=== PATIENT | female | born 1960 | race Caucasian/White ===

== ENCOUNTER 2019-10-19 08:57 | Day surgery (SDC) | payer MEDICARE ==
[2019-10-19] MEDS ORDERED: Lactated Ringers 1,000 ML IV SCH (10:00)
[2019-10-19] MEDS ORDERED: Ketamine HCl 50 MG/ML ONE (11:17)
[2019-10-19] MEDS ORDERED: DIPRIVAN 200 MG/20 ML IV ONE ×2 (11:17→11:34)
[2019-10-19] MEDS ORDERED: Ephedrine Sulfate 50 MG/ML ONE (11:32)
[2019-10-19 12:36] VITALS: BP 100/68; PULSE 66; O2SAT 97
--- NOTE | 2019-10-19 13:06 | OP ---
SURGERY DATE/TIME: 10/19/2019 1120 PREOPERATIVE DIAGNOSIS: Colostomy in place. POSTOPERATIVE DIAGNOSES: 1) Colostomy in place. 2) Pancolonic diverticulosis. PROCEDURE: Colonoscopy through anus and stoma. SURGEON: Saúl Thomas M.D. ANESTHESIA: IV anesthesia. COMPLICATIONS: None. SPECIMEN: None. PATIENT CONDITION: Stable. HISTORY: The patient is a 59 year-old female who last year underwent Pino procedure for perforated diverticulitis. She has been doing well since that time. She now desires reversal. Risk of perforation, infection, bleeding were discussed and she elected to proceed. FINDINGS: Pancolonic diverticulosis. Rectal stump 18 cm. DESCRIPTION OF PROCEDURE: The patient was brought to endoscopy suite. She is positioned. Time out was performed. IV anesthesia was induced. External anal exam was normal. Digital rectal exam was normal. Scope is inserted. There was some small mucous balls. The scope is easily advanced about 18 cm which is probably at the end. There was some mucous so it was hard to definitively see the end. The patient was then placed flat and the scope was introduced through stoma. This was easily advanced to the cecum. Appendiceal orifice was identified. Ileocecal valve identified. Prep was adequate though very small lesions could be missed. She had pancolonic diverticulosis extending all the way to the cecum. There is no evidence of diverticulitis. The exam was otherwise normal. The patient tolerated the procedure well.
== END 2019-10-19 12:35 | disposition home or self-care (01) ==
LOC: SDC 08:57
PROVIDERS: ATTEND Surgery
DX: K57.30 Diverticulosis of large intestine without perforation or abscess without bleeding (principal); I10 Essential (primary) hypertension; M19.90 Unspecified osteoarthritis, unspecified site; Z90.49 Acquired absence of other specified parts of digestive tract; Z93.3 Colostomy status
CPT/HCPCS: J2704

== ENCOUNTER 2019-12-02 07:07 | Inpatient (IN) | payer MEDICARE ==
[~2019-12-02 07:07] MED LIST: Lactated Ringers 1,000 ML IV SCH; MEFOXIN 2 GM PREMIX** 2 GM/50 ML ML IV SCH
[2019-12-02] MEDS ORDERED: Lactated Ringers 1,000 ML IV ONE ×2 (07:16→14:14)
[2019-12-02] MEDS ORDERED: MEFOXIN 2 GM PREMIX** 2 GM/50 ML ML IV ONE (07:16)
[2019-12-02] MEDS ORDERED: ENTEREG 12 MG PO SCH (07:30)
[2019-12-02 08:07] LABS: Hematocrit 46.2 % (35-47); Hemoglobin 15.7 gm/dl (12.0-16.0); Mean Cell Volume 90.2 fl (78-100); Mean Corpuscular Hemoglobin 30.7 pg (26-32); Mean Platelet Volume 9.3 fl (7.5-11.0); Platelet Count 209 K/mm3 (150-450); Red Blood Count 5.12 M/mm3 (4.1-5.4); Red Cell Distribution Width 12.8 % (11.5-14.0); White Blood Count 6.7 K/mm3 (4.0-10.5)
[2019-12-02 08:23] LABS: ALBUMIN 4.8 g/dL (3.5-5.0); ANION GAP 14.6 MEQ/L (5-15); BILIRUBIN,TOTAL 1.3 mg/dL (0.2-1.3); Calcium 9.6 mg/dL (8.4-10.2); Creatinine 1 1.24 mg/dL (0.52-1.04); EST GLOMERULAR FILTRATION RATE 47.2 ML/MIN; Total Protein 8.3 g/dL (6.3-8.2)
[2019-12-02] MEDS ORDERED: Lactated Ringers 1,000 ML IV SCH (09:00)
[2019-12-02] MEDS ORDERED: SUBLIMAZE 250 MCG/5 ML ONE (09:32)
[2019-12-02] MEDS ORDERED: DIPRIVAN 200 MG/20 ML IV ONE (09:32)
[2019-12-02] MEDS ORDERED: Zemuron 100 MG/10 ML ONE ×3 (09:32→11:54)
[2019-12-02] MEDS ORDERED: Versed 2 MG/2 ML Injection ONE (09:32)
[2019-12-02] MEDS ORDERED: Xylocaine-Mpf 2% 5 Ml Vial ONE (09:42)
[2019-12-02 10:00] LABS: ABO TYPING AB; Antibody Screen NEGATIVE (NEGATIVE); RH TYPING POSITIVE
[2019-12-02] MEDS ORDERED: Lactated Ringers 2,000 ML IV ONE (10:06)
[2019-12-02] MEDS ORDERED: SUBLIMAZE 100 MCG/2 ML ONE ×2 (10:49→13:54)
[2019-12-02 10:57] LABS: A-aADO2 206; ABG HEMOGLOBIN 14.4; ARTERIAL BLD GAS O2 SATURATION 99.2 % (95-100); ARTERIAL BLOOD GAS BASE EXCESS 5.1 (-2.0-2.0); ARTERIAL BLOOD GAS FIO2 50 %; ARTERIAL BLOOD GAS PCO2 34 mmHg (35-45); ARTERIAL BLOOD GAS PO2 108 mmHg (75-100); ARTERIAL BLOOD GAS pH 7.52 (7.35-7.45); CARBOXYHEMOGLOBIN 1.2 % THgb (0.0-6.9); HCO3- 27.8 (22-28); HGB O2 SAT 96.6 g/dF (94-100); Methhemoglobin 1.4 % (1.4-1.5); paO2 pAO1 0.34
[2019-12-02 10:58] LABS: ABG POTASSIUM 2.9 (3.5-5.1); ABG SITE ARTLINE
[2019-12-02] MEDS ORDERED: MORPHINE SULFATE 10 MG/ML ONE ×2 (11:30→13:54)
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
[2019-12-02] MEDS ORDERED: Marcaine 0.5%/Epinephrine 10 ML ONE (12:22)
[2019-12-02] MEDS ORDERED: MARCAINE 0.5%-EPI 1:200,000 VL IJ ONE (12:22)
[2019-12-02] MEDS ORDERED: Zofran 4 MG/2 ML VIAL ONE (12:46)
[2019-12-02] MEDS ORDERED: BRIDION 200MG/2ML IV ONE (12:46)
[2019-12-02 13:47] LABS: A-aADO2 225; ABG POTASSIUM 3.3 (3.5-5.1); ARTERIAL BLD GAS O2 SATURATION 91.8 % (95-100); ARTERIAL BLOOD GAS BASE EXCESS -0.7 (-2.0-2.0); ARTERIAL BLOOD GAS FIO2 50 %; ARTERIAL BLOOD GAS PCO2 54 mmHg (35-45); ARTERIAL BLOOD GAS PO2 64 mmHg (75-100); CARBOXYHEMOGLOBIN 1.8 % THgb (0.0-6.9); HCO3- 26.6 (22-28); HGB O2 SAT 89.2 g/dF (94-100); Methhemoglobin 1.1 % (1.4-1.5); paO2 pAO1 0.22
[2019-12-02 13:48] LABS: ABG SITE rr; ALLEN TEST OK? y
[2019-12-02 14:27] LABS: A-aADO2 161; ABG HEMOGLOBIN 15.2; ABG POTASSIUM 3.6 (3.5-5.1); ARTERIAL BLOOD GAS BASE EXCESS -1.7 (-2.0-2.0); ARTERIAL BLOOD GAS FIO2 50 %; ARTERIAL BLOOD GAS PCO2 61 mmHg (35-45); ARTERIAL BLOOD GAS PO2 119 mmHg (75-100); ARTERIAL BLOOD GAS VENT MODE BiPAP; ARTERIAL BLOOD GAS pH 7.25 (7.35-7.45); CARBOXYHEMOGLOBIN 1.4 % THgb (0.0-6.9); HCO3- 26.8 (22-28); HGB O2 SAT 96.7 g/dF (94-100); Methhemoglobin 0.9 % (1.4-1.5); paO2 pAO1 0.43
[2019-12-02 14:28] LABS: ABG SITE ARTLINE
[2019-12-02 14:45] LABS: Appearance SLIGHTLY CLOUDY (CLEAR); Bilirubin NEGATIVE (NEGATIVE); Blood SMALL Ery/ul (0-5); Epithelial Cells RARE /HPF (FEW); Glucose NEGATIVE (NEGATIVE); Ketones SMALL (NEGATIVE); Leukocyte Esterase NEGATIVE (NEGATIVE); Mucus SLIGHT /HPF (NEGATIVE); Nitrite NEGATIVE (NEGATIVE); Protein,Urine Dip NEGATIVE (Negative); RBC 0-2 /HPF (0-2); Specific Gravity 1.016 (1.005-1.025); Urobilinogen NEGATIVE mg/dL (0-1); WBC 0-2 /HPF (0-5)
[2019-12-02 14:56] LABS: Bacteria NONE SEEN /HPF (NEGATIVE)
[2019-12-02 15:21] LABS: A-aADO2 137; ABG POTASSIUM 3.8 (3.5-5.1); ABG SITE ARTLINE; ARTERIAL BLOOD GAS BASE EXCESS -1.1 (-2.0-2.0); ARTERIAL BLOOD GAS FIO2 50 %; ARTERIAL BLOOD GAS PCO2 53 mmHg (35-45); ARTERIAL BLOOD GAS PO2 153 mmHg (75-100); ARTERIAL BLOOD GAS VENT MODE BiPAP; CARBOXYHEMOGLOBIN 1.5 % THgb (0.0-6.9); HCO3- 26.1 (22-28); HGB O2 SAT 97.3 g/dF (94-100); Methhemoglobin 1.1 % (1.4-1.5); paO2 pAO1 0.53
--- NOTE | 2019-12-02 15:26 | OP ---
SURGERY DATE/TIME: 12/02/2019 0936 PREOPERATIVE DIAGNOSIS: Undesired colostomy. POSTOPERATIVE DIAGNOSES: 1) Undesired colostomy. 2) Intra-abdominal adhesions. PROCEDURES: 1) Pino reversal. 2) Appendectomy. 3) Enterolysis less than 30 minutes. 4) Completion sigmoidoscopy. SURGEON: Saúl Thomas M.D. ELECTRIC METER TECHNICIAN: Ludwin Thomas M.D. ANESTHESIA: General. ESTIMATED BLOOD LOSS: 200. PATIENT CONDITION: Stable. COMPLICATIONS: None. SPECIMENS: 1) Appendix. 2) Portion of sigmoid colon. HISTORY: The patient is a 59 year old female who underwent Pino procedure for perforated diverticulitis. Since that time she has done well. Colonoscopy showed pancolonic diverticulosis but no other concerns. Risk of infection, bleeding, anastomotic leak, , hernia were discussed with the patient and she elected to proceed. FINDINGS: There was adequate descending sigmoid colon length. The anastomosis was at 15 cm. The rectal stump did require resection as it was slightly long and scarred. An end-to-side 25 mm anastomosis was made. Small bowel enterotomy was made due to dense adhesion to the rectal staple line this was primarily repaired. DESCRIPTION OF PROCEDURE: The patient was brought to operating room. General anesthesia was induced. She was placed in lithotomy position. SCD's were applied on. She was routinely prepped and draped. Time out was performed. She received preoperative antibiotic. Midline laparotomy was made and carried down through the fascia. The abdomen was entered. There were omental adhesion to the midline and the ostomy site. These were taken down. A loop of small bowel was adhesed down to the rectal stump and was intimately involved. It was expected to make an enterotomy. A small enterotomy less than 1 cm was made at the corner of the adhesion to the staple line. This was primarily repaired with 3-0 Vicryl suture. It was then tested and was satisfactory with no stenosis. The abdomen was surveyed. The liver was normal. The NG was in the stomach. The rest of the colon was normal. Descending sigmoid colon evaluated. She did have a savable redundant descending colon with sigmoid. She did have some mild diverticular disease but the colon was completely soft and healthy. The ostomy was taken down. Elliptical incision was made taking the ostomy down. The fascia was closed with 0 PDS suture. The line was then tested. There was adequate length. No splenic flexure mobilization was necessary. The descending and sigmoid colon was small caliber. End-to-side anastomosis was placed. Enterotomy was made and the sizers were placed. The 25 sizer was appropriate. The 25 anvil was placed. Blue load JAMES was used to divide the sigmoid. The specimen was sent as "portion of the sigmoid colon". The rectal stump was addressed. The end was clearly visible at the old staple line this was at the area where the tinea were splaying. The dilator was placed through the rectum. However there was kink and some scarring of the colon and mesentery which required the mesentery and the colon to be freed up additionally. Ultimately a few centimeters of remaining of sigmoid was needed to be resected. The contour green load was used to divide the rectum. The mesentery was taken with the ENSEAL. The specimen was sent with the prior specimen. The sizer was passed up and was satisfactory. 29 was also passed up satisfactorily. The 25 contour stapler was placed. The point was brought out. The EEA anastomosis was created this was satisfactory with absolutely no tension and there was good hemostasis intra-abdominally. The colonoscope was advanced. The anastomosis was healthy. There was some oozing from the posterior anastomosis though. There were no bubbles that were detected. A clip was applied to posterior anastomosis. There was good hemostasis. The colon was desufflated. Scope removed. The anastomosis was at 15 cm. The abdomen was surveyed. There was good hemostasis. The pelvis and left lower quadrant was irrigated and suctioned. A 10 Spanish drain was placed in the pelvis. The ostomy closure site was satisfactory. The fascia was closed with looped 0 PDS running suture. The wounds were irrigated. A 0.25 [place] was placed in the ostomy incision and reapproximated with arin. The midline wound was reapproximated with arin with 0.25 inch packing josh interspersed. Sterile dressing was applied. All counts were correct. The patient tolerated the procedure well. Plan for tap block and extubation. ADDENDUM: During survey of the abdomen, the appendix had a small, 3 mm nodule on it that looked slightly abnormal. Appendectomy was performed. Mesoappendix was taken with ENSEAL. The base of the appendix was taken with white load JAMES. Specimen was sent to pathology.
[2019-12-02 16:08] LABS: ALBUMIN 3.9 g/dL (3.5-5.0); ALKALINE PHOSPHATASE 68 U/L (38-126); ANION GAP 10.8 MEQ/L (5-15); BLOOD UREA NITROGEN 20 mg/dL (7-17); CHLORIDE 103 mmol/L (98-107); Calcium 8.4 mg/dL (8.4-10.2); Carbon Dioxide 24 mmol/L (22-30); Creatinine 1 0.98 mg/dL (0.52-1.04); EST GLOMERULAR FILTRATION RATE > 60.0 ML/MIN; Glucose 141 mg/dL (74-106); MAGNESIUM 1.9 mg/dL (1.6-2.3); Potassium 3.7 mmol/L (3.5-5.1); SGOT/AST 31 U/L (14-36); SGPT/ALT 15 U/L (0-35); SODIUM 134 mmol/L (137-145)
[2019-12-02 16:16] LABS: Hematocrit 43.1 % (35-47); Hemoglobin 14.6 gm/dl (12.0-16.0); Mean Cell Volume 90.4 fl (78-100); Mean Corpuscular Hemoglobin 30.6 pg (26-32); Mean Corpuscular Hgb Concent. 33.9 g/dl (32-36); Mean Platelet Volume 9.5 fl (7.5-11.0); Platelet Count 239 K/mm3 (150-450); Red Blood Count 4.77 M/mm3 (4.1-5.4); Red Cell Distribution Width 12.8 % (11.5-14.0)
[2019-12-02 17:09] LABS: A-aADO2 113; ABG HEMOGLOBIN 13.4; ABG POTASSIUM 3.6 (3.5-5.1); ABG SITE ARTLINE; ARTERIAL BLD GAS O2 SATURATION 99.7 % (95-100); ARTERIAL BLOOD GAS FIO2 50 %; ARTERIAL BLOOD GAS PCO2 49 mmHg (35-45); ARTERIAL BLOOD GAS PO2 182 mmHg (75-100); ARTERIAL BLOOD GAS VENT MODE BiPAP; ARTERIAL BLOOD GAS pH 7.34 (7.35-7.45); CARBOXYHEMOGLOBIN 1.3 % THgb (0.0-6.9); HCO3- 26.4 (22-28); HGB O2 SAT 97.2 g/dF (94-100); Methhemoglobin 1.2 % (1.4-1.5); paO2 pAO1 0.62
[2019-12-02] MEDS ORDERED: Dextrose 5%-Lr IV Solution 1000 ML 1,000 ML IV ONE (19:26)
[2019-12-02] MEDS: MORPHINE SULFATE 2 MG INJ IV PRN (19:33)
[2019-12-02] MEDS: Dextrose 5%-Lr IV Solution 1000 ML 1,000 ML IV SCH (19:33)
[2019-12-02] MEDS: MORPHINE SULFATE 4 MG INJ IV PRN (22:33)
[2019-12-03] MEDS: TYLENOL 325 MG PO PRN (00:22)
[2019-12-03] MEDS ORDERED: Dextrose 5%-Lr IV Solution 1000 ML 1,000 ML IV ONE (03:20)
[2019-12-03] MEDS: Dextrose 5%-Lr IV Solution 1000 ML 1,000 ML IV SCH (03:57)
[2019-12-03 06:02] LABS: A-aADO2 16; ABG HEMOGLOBIN 11.7; ABG POTASSIUM 3.2 (3.5-5.1); ABG SITE RIGHT BRACHIAL; ARTERIAL BLD GAS O2 SATURATION 99.5 % (95-100); ARTERIAL BLOOD GAS BASE EXCESS 5.4 (-2.0-2.0); ARTERIAL BLOOD GAS FIO2 28 %; ARTERIAL BLOOD GAS PCO2 38 mmHg (35-45); ARTERIAL BLOOD GAS PO2 136 mmHg (75-100); ARTERIAL BLOOD GAS pH 7.49 (7.35-7.45); CARBOXYHEMOGLOBIN 4.9 % THgb (0.0-6.9); HGB O2 SAT 93.3 g/dF (94-100); Methhemoglobin 1.4 % (1.4-1.5); paO2 pAO1 0.89
[2019-12-03 06:04] LABS: Hematocrit 33.4 % (35-47); Hemoglobin 11.2 gm/dl (12.0-16.0); Mean Cell Volume 93.3 fl (78-100); Mean Corpuscular Hemoglobin 31.3 pg (26-32); Mean Corpuscular Hgb Concent. 33.5 g/dl (32-36); Mean Platelet Volume 9.3 fl (7.5-11.0); Platelet Count 161 K/mm3 (150-450); Red Blood Count 3.58 M/mm3 (4.1-5.4); Red Cell Distribution Width 12.9 % (11.5-14.0); White Blood Count 6.2 K/mm3 (4.0-10.5)
[2019-12-03 06:16] LABS: ANION GAP 6.9 MEQ/L (5-15); BLOOD UREA NITROGEN 14 mg/dL (7-17); CHLORIDE 105 mmol/L (98-107); Calcium 7.7 mg/dL (8.4-10.2); Carbon Dioxide 25 mmol/L (22-30); Creatinine 1 0.99 mg/dL (0.52-1.04); EST GLOMERULAR FILTRATION RATE > 60.0 ML/MIN; Glucose 122 mg/dL (74-106); SODIUM 134 mmol/L (137-145)
[2019-12-03] MEDS: POTASSIUM CHLORIDE 20 mEq IN WATER 100ML 20 MEQ/100 ML BAG IV SCH ×2 (07:00→08:31)
[2019-12-03] MEDS: D5w/0.45NS W/ 40MEQ KCl 1000 Ml 1,000 ML IV SCH ×3 (07:00→22:51)
[2019-12-03] MEDS ORDERED: NON-FORMULARY ITEM (Omeprazole [Omeprazole] 40 MG) PO PRN (07:13)
[2019-12-03] MEDS ORDERED: MEDICATION INTERVENTION MC SCH (07:30)
[2019-12-03] MEDS: MORPHINE SULFATE 4 MG INJ IV PRN (07:39)
[2019-12-03] MEDS: ENOXAPARIN SODIUM SQ SCH (09:17)
[2019-12-03] MEDS: MORPHINE SULFATE 2 MG INJ IV PRN ×5 (09:17→22:50)
[2019-12-03] MEDS: ENTEREG 12 MG PO SCH ×2 (09:43→23:14)
[2019-12-03] MEDS: ceLEXa 20 MG PO SCH (09:43)
[2019-12-03] MEDS: TOPIRAMATE PO SCH ×2 (09:45→23:14)
[2019-12-03] MEDS ORDERED: Protonix 40MG Tablet PO SCH (10:00)
[2019-12-03] MEDS ORDERED: Cymbalta 30 MG Capsule PO SCH (10:00)
[2019-12-03] MEDS: hydroDIURIL 25 MG PO SCH (11:51)
[2019-12-03] MEDS ORDERED: PROTONIX 40 MG IV IV SCH (18:45)
[2019-12-04] MEDS: MORPHINE SULFATE 2 MG INJ IV PRN ×6 (02:54→20:45)
[2019-12-04 05:52] LABS: Hematocrit 34.1 % (35-47); Mean Cell Volume 94.5 fl (78-100); Mean Corpuscular Hemoglobin 30.5 pg (26-32); Mean Corpuscular Hgb Concent. 32.3 g/dl (32-36); Mean Platelet Volume 9.5 fl (7.5-11.0); Platelet Count 144 K/mm3 (150-450); Red Blood Count 3.61 M/mm3 (4.1-5.4); Red Cell Distribution Width 12.8 % (11.5-14.0); White Blood Count 7.1 K/mm3 (4.0-10.5)
[2019-12-04 06:09] LABS: ANION GAP 7.3 MEQ/L (5-15); BLOOD UREA NITROGEN 7 mg/dL (7-17); CHLORIDE 109 mmol/L (98-107); Calcium 8.4 mg/dL (8.4-10.2); Carbon Dioxide 23 mmol/L (22-30); Creatinine 1 0.81 mg/dL (0.52-1.04); EST GLOMERULAR FILTRATION RATE > 60.0 ML/MIN; Glucose 124 mg/dL (74-106); Potassium 4.5 mmol/L (3.5-5.1); SODIUM 134 mmol/L (137-145)
[2019-12-04] MEDS: D5w/0.45NS W/ 40MEQ KCl 1000 Ml 1,000 ML IV SCH (06:53)
[2019-12-04] MEDS: PATIENT OWN MEDICATION PO SCH ×2 (09:59→21:11)
[2019-12-04] MEDS: ceLEXa 20 MG PO SCH (10:00)
[2019-12-04] MEDS: ENTEREG 12 MG PO SCH ×2 (10:01→21:12)
[2019-12-04] MEDS: PROTONIX 40 MG IV IV SCH (10:04)
[2019-12-04] MEDS: ENOXAPARIN SODIUM SQ SCH (10:05)
[2019-12-04] MEDS: hydroDIURIL 25 MG PO SCH (10:09)
[2019-12-04] MEDS: TOPIRAMATE PO SCH ×2 (10:10→21:16)
[2019-12-04] MEDS ORDERED: DEXTROSE 5% -NACL 0.9% 1000 ML + KCl 20 MEQ 1,000 ML IV SCH (17:00)
[2019-12-04] MEDS: D5W/0.45NS W/ 20mEq KCl 1000 ML 1,000 ML IV SCH (17:11)
[2019-12-04] MEDS: TYLENOL 325 MG PO PRN (17:12)
[2019-12-05] MEDS: D5W/0.45NS W/ 20mEq KCl 1000 ML 1,000 ML IV SCH ×3 (01:01→16:48)
[2019-12-05] MEDS: MORPHINE SULFATE 2 MG INJ IV PRN ×5 (03:31→20:54)
[2019-12-05 04:52] LABS: Hematocrit 32.1 % (35-47); Hemoglobin 10.4 gm/dl (12.0-16.0); Mean Cell Volume 94.1 fl (78-100); Mean Corpuscular Hemoglobin 30.5 pg (26-32); Mean Corpuscular Hgb Concent. 32.4 g/dl (32-36); Mean Platelet Volume 9.4 fl (7.5-11.0); Platelet Count 150 K/mm3 (150-450); Red Blood Count 3.41 M/mm3 (4.1-5.4); Red Cell Distribution Width 12.7 % (11.5-14.0); White Blood Count 5.6 K/mm3 (4.0-10.5)
[2019-12-05 05:05] LABS: ANION GAP 6.3 MEQ/L (5-15); BLOOD UREA NITROGEN 6 mg/dL (7-17); CHLORIDE 110 mmol/L (98-107); Calcium 8.5 mg/dL (8.4-10.2); Carbon Dioxide 23 mmol/L (22-30); Creatinine 1 0.76 mg/dL (0.52-1.04); EST GLOMERULAR FILTRATION RATE > 60.0 ML/MIN; Glucose 122 mg/dL (74-106); Potassium 4.3 mmol/L (3.5-5.1); SODIUM 135 mmol/L (137-145)
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
[2019-12-05] MEDS: ceLEXa 20 MG PO SCH (10:47)
[2019-12-05] MEDS: ENOXAPARIN SODIUM SQ SCH (10:47)
[2019-12-05] MEDS: hydroDIURIL 25 MG PO SCH (10:49)
[2019-12-05] MEDS: PROTONIX 40 MG IV IV SCH (10:49)
[2019-12-05] MEDS: PATIENT OWN MEDICATION PO SCH ×2 (10:56→20:54)
[2019-12-05] MEDS: TOPIRAMATE PO SCH ×2 (10:57→20:59)
[2019-12-05] MEDS: ENTEREG 12 MG PO SCH ×2 (11:14→20:54)
[2019-12-06] MEDS: D5W/0.45NS W/ 20mEq KCl 1000 ML 1,000 ML IV SCH ×3 (00:56→17:20)
[2019-12-06 06:20] LABS: Hematocrit 31.9 % (35-47); Hemoglobin 10.2 gm/dl (12.0-16.0); Mean Cell Volume 93.8 fl (78-100); Mean Platelet Volume 9.7 fl (7.5-11.0); Platelet Count 192 K/mm3 (150-450); Red Cell Distribution Width 12.4 % (11.5-14.0); White Blood Count 4.3 K/mm3 (4.0-10.5)
[2019-12-06 07:20] LABS: ANION GAP 7.8 MEQ/L (5-15); BLOOD UREA NITROGEN 5 mg/dL (7-17); CHLORIDE 106 mmol/L (98-107); Calcium 8.8 mg/dL (8.4-10.2); Carbon Dioxide 25 mmol/L (22-30); Creatinine 1 0.77 mg/dL (0.52-1.04); EST GLOMERULAR FILTRATION RATE > 60.0 ML/MIN; Glucose 118 mg/dL (74-106); Potassium 3.9 mmol/L (3.5-5.1); SODIUM 135 mmol/L (137-145)
--- NOTE | 2019-12-06 07:57 | PCM.NOTE ---
Date and Time: 12/06/19 0757 Subjective Assessment: doing better. - Review of Systems Constitutional: No Fever, No Chills Eyes: No Symptoms Ears, Nose, & Throat: No Symptoms Respiratory: No Cough, No Short Of Breath Cardiac: No Chest Pain, No Edema, No Syncope Abdominal/Gastrointestinal: No Abdominal Pain, No Nausea, No Vomiting, No Diarrhea Genitourinary Symptoms: No Dysuria Musculoskeletal: No Back Pain, No Neck Pain Skin: No Rash Neurological: No Dizziness, No Focal Weakness, No Sensory Changes Psychological: No Symptoms Endocrine: No Symptoms Hematologic/Lymphatic: No Symptoms Immunological/Allergic: No Symptoms Objective Exam General Appearance: no apparent distress, alert Neurologic Exam: alert, oriented x 3, cooperative, normal mood/affect, nml cerebellar function, sensation nml, No motor deficits Skin Exam: normal color, warm, dry Wound Assessment: Skin/Wound Assessment Wound/Incision Assessment Start: 12/02/19 20:00 Text: Status: Active Freq: Q4H Protocol: Document 12/06/19 03:15 MS (Rec: 12/06/19 03:31 MS [id number]) Wound/Incision Assessment Anterior Abdomen Wound Assessment Shift Assessment Wound Type Incision Wound Stage Non Pressure Wound Dressing Status Dry & Intact Drainage Amount None Primary Dressing ISLAND DRESSING Right Lower Abdomen Drain Type QUANG drain Drainage Description Serosanguineous Drainage Amount (ml) 20 Eye Exam: PERRL, EOMI, eyes nml inspection Ears, Nose, Throat Exam: normal ENT inspection, pharynx normal, moist mucous membranes Neck Exam: normal inspection, non-tender, supple, full range of motion Respiratory Exam: normal breath sounds, lungs clear, No respiratory distress Cardiovascular Exam: regular rate/rhythm, normal heart sounds Gastrointestinal/Abdomen Exam: soft, No tenderness, No mass Extremity Exam: normal inspection, normal range of motion Back Exam: normal inspection, normal range of motion, No CVA tenderness, No vertebral tenderness Pelvic Exam: deferred Rectal Exam: deferred OBJECTIVE DATA Vital Signs: Vital Signs - 24 hr Temp Pulse Resp BP Pulse Ox 12/06/19 07:45 98.4 F 74 18 112/63 95 12/06/19 03:55 97.9 F 70 18 113/66 95 12/06/19 03:15 18 12/06/19 00:00 98.0 F 76 16 122/73 95 12/05/19 22:00 98.1 F 69 122/77 96 12/05/19 19:00 18 12/05/19 18:40 94 L 12/05/19 16:00 97.7 F 67 16 119/69 95 12/05/19 11:47 97.5 F 71 16 116/68 96 12/05/19 08:00 98.2 F 73 16 110/66 93 L Pain Assessment - Last Documented Pain Intensity 3 Pain Scale Used 0-10 Pain Scale Intake and Output: Intake & Output 12/03/19 12/04/19 12/05/19 12/06/19 11:59 11:59 11:59 11:59 Intake Total 1487 2931 2733 3992 Output Total 885 3460 1395 1570 Balance 602 -004 1338 2422 Weight 84.4 kg 84.4 kg Lab Results: Lab Results-Last 24 Hours 12/06/19 12/06/19 Range/Units 05:42 05:42 WBC 4.3 (4.0-10.5) K/mm3 RBC 3.40 L (4.1-5.4) M/mm3 Hgb 10.2 L (12.0-16.0) gm/dl Hct 31.9 L (35-47) % MCV 93.8 (78-100) fl MCH 30.0 (26-32) pg MCHC 32.0 (32-36) g/dl RDW 12.4 (11.5-14.0) % Plt Count 192 (150-450) K/mm3 MPV 9.7 (7.5-11.0) fl Sodium 135 L (137-145) mmol/L Potassium 3.9 (3.5-5.1) mmol/L Chloride 106 (98-107) mmol/L Carbon Dioxide 25 (22-30) mmol/L Anion Gap 7.8 (5-15) MEQ/L BUN 5 L (7-17) mg/dL Creatinine 0.77 (0.52-1.04) mg/dL Estimated GFR > 60.0 ML/MIN Glucose 118 H (74-106) mg/dL Calcium 8.8 (8.4-10.2) mg/dL Assessment/Plan (1) Hypertension Current Visit: Yes Status: Chronic Qualifiers: Hypertension type: essential hypertension Qualified Code(s): I10 - Essential (primary) hypertension Code(s): I10 - ESSENTIAL (PRIMARY) HYPERTENSION (2) History of colostomy reversal Current Visit: Yes Status: Acute Code(s): Z98.890 - OTHER SPECIFIED POSTPROCEDURAL STATES
[2019-12-06] MEDS: ENOXAPARIN SODIUM SQ SCH (09:29)
[2019-12-06] MEDS: ceLEXa 20 MG PO SCH (09:29)
[2019-12-06] MEDS: ENTEREG 12 MG PO SCH ×2 (09:30→21:29)
[2019-12-06] MEDS: PROTONIX 40 MG IV IV SCH (09:30)
[2019-12-06] MEDS: hydroDIURIL 25 MG PO SCH (09:30)
[2019-12-06] MEDS: TOPIRAMATE PO SCH ×2 (09:31→21:30)
[2019-12-06] MEDS: PATIENT OWN MEDICATION PO SCH ×2 (09:32→22:40)
[2019-12-06] MEDS: MORPHINE SULFATE 2 MG INJ IV PRN ×2 (15:00)
[2019-12-06] MEDS: NORCO 5/325 MG PO PRN (21:28)
[2019-12-07] MEDS: D5W/0.45NS W/ 20mEq KCl 1000 ML 1,000 ML IV SCH (07:52)
[2019-12-07] MEDS: TYLENOL 325 MG PO PRN (08:00)
[2019-12-07] MEDS: TOPIRAMATE PO SCH ×2 (09:42→22:13)
[2019-12-07] MEDS: PROTONIX 40 MG IV IV SCH ×2 (09:42→09:58)
[2019-12-07] MEDS: PATIENT OWN MEDICATION PO SCH ×2 (09:43→21:54)
[2019-12-07] MEDS: ENOXAPARIN SODIUM SQ SCH (09:43)
[2019-12-07] MEDS: hydroDIURIL 25 MG PO SCH (09:43)
[2019-12-07] MEDS: ceLEXa 20 MG PO SCH (09:44)
--- NOTE | 2019-12-07 11:36 | PCM.NOTE ---
Date and Time: 12/07/19 1135 Subjective Assessment: doing ok - Review of Systems Constitutional: No Fever, No Chills Eyes: No Symptoms Ears, Nose, & Throat: No Symptoms Respiratory: No Cough, No Short Of Breath Cardiac: No Chest Pain, No Edema, No Syncope Abdominal/Gastrointestinal: No Abdominal Pain, No Nausea, No Vomiting, No Diarrhea Genitourinary Symptoms: No Dysuria Musculoskeletal: No Back Pain, No Neck Pain Skin: No Rash Neurological: No Dizziness, No Focal Weakness, No Sensory Changes Psychological: No Symptoms Endocrine: No Symptoms Hematologic/Lymphatic: No Symptoms Immunological/Allergic: No Symptoms Objective Exam General Appearance: no apparent distress, alert Neurologic Exam: alert, oriented x 3, cooperative, normal mood/affect, nml cerebellar function, sensation nml, No motor deficits Skin Exam: normal color, warm, dry Wound Assessment: Skin/Wound Assessment Wound/Incision Assessment Start: 12/02/19 20:00 Text: Status: Active Freq: Q4H Protocol: Document 12/07/19 07:00 SUZIE (Rec: 12/07/19 07:44 SUZIE [id number]) Wound/Incision Assessment Anterior Abdomen Wound Assessment Shift Assessment Wound Type Incision Wound Stage Non Pressure Wound Dressing Status Dry & Intact Drainage Amount None Primary Dressing ISLAND DRESSING Right Lower Abdomen Drain Type QUANG drain Drainage Description Serosanguineous Wound Photo Photo Taken No Eye Exam: PERRL, EOMI, eyes nml inspection Ears, Nose, Throat Exam: normal ENT inspection, pharynx normal, moist mucous membranes Neck Exam: normal inspection, non-tender, supple, full range of motion Respiratory Exam: normal breath sounds, lungs clear, No respiratory distress Cardiovascular Exam: regular rate/rhythm, normal heart sounds Gastrointestinal/Abdomen Exam: soft, No tenderness, No mass Extremity Exam: normal inspection, normal range of motion Back Exam: normal inspection, normal range of motion, No CVA tenderness, No vert ebral tenderness Pelvic Exam: deferred Rectal Exam: deferred OBJECTIVE DATA Vital Signs: Vital Signs - 24 hr Temp Pulse Resp BP Pulse Ox 12/07/19 07:34 100.3 F 66 20 114/76 94 L 12/07/19 07:00 20 12/07/19 04:00 98.3 F 69 20 115/67 96 12/07/19 03:00 18 12/07/19 00:00 97.9 F 69 18 114/65 94 L 12/06/19 23:00 16 12/06/19 20:00 98.1 F 73 22 115/69 94 L 12/06/19 19:00 20 12/06/19 15:45 98.7 F 68 18 119/72 95 12/06/19 12:00 97.8 F 69 18 117/76 96 Pain Assessment - Last Documented Pain Intensity 0 Pain Scale Used 0-10 Pain Scale Intake and Output: Intake & Output 12/04/19 12/05/19 12/06/19 12/07/19 11:59 11:59 11:59 11:59 Intake Total 2931 2733 4092 2031 Output Total 3460 1395 1770 1215 Balance -529 1338 2322 816 Weight 84.4 kg Assessment/Plan (1) Hypertension Current Visit: Yes Status: Chronic Qualifiers: Hypertension type: essential hypertension Qualified Code(s): I10 - Essential (primary) hypertension Code(s): I10 - ESSENTIAL (PRIMARY) HYPERTENSION (2) History of colostomy reversal Current Visit: Yes Status: Acute Code(s): Z98.890 - OTHER SPECIFIED POSTPROCEDURAL STATES
[2019-12-07] MEDS: NORCO 5/325 MG PO PRN (15:18)
[2019-12-07] MEDS: Zosyn 3.375 GM Vial 3.375 GM in Sodium Chloride 100ML MINI-BAG PLUS 100 ML IV SCH ×3 (16:05→23:40)
[2019-12-07] MEDS: ENTEREG 12 MG PO SCH ×2 (16:05→22:13)
[2019-12-07] MEDS ORDERED: XYLOCAINE 1% HCL 20 ML MDV IJ ONE (17:06)
[2019-12-07] MEDS ORDERED: Zosyn 3.375 GM Vial 3.375 GM in Sodium Chloride 100ML MINI-BAG PLUS 100 ML IV SCH (18:00)
[2019-12-07] MEDS: MORPHINE SULFATE 2 MG INJ IV PRN ×2 (18:12→21:54)
[2019-12-08 04:48] LABS: Hematocrit 34.1 % (35-47); Hemoglobin 11.2 gm/dl (12.0-16.0); Mean Cell Volume 92.7 fl (78-100); Mean Corpuscular Hemoglobin 30.4 pg (26-32); Mean Corpuscular Hgb Concent. 32.8 g/dl (32-36); Mean Platelet Volume 9.2 fl (7.5-11.0); Platelet Count 236 K/mm3 (150-450); Red Blood Count 3.68 M/mm3 (4.1-5.4); Red Cell Distribution Width 12.4 % (11.5-14.0); White Blood Count 5.8 K/mm3 (4.0-10.5)
[2019-12-08] MEDS: Zosyn 3.375 GM Vial 3.375 GM in Sodium Chloride 100ML MINI-BAG PLUS 100 ML IV SCH ×4 (05:32→23:31)
[2019-12-08] MEDS: PATIENT OWN MEDICATION PO SCH ×2 (09:39→21:37)
[2019-12-08] MEDS: ENOXAPARIN SODIUM SQ SCH (09:39)
[2019-12-08] MEDS: ceLEXa 20 MG PO SCH (09:40)
[2019-12-08] MEDS: PROTONIX 40 MG IV IV SCH (09:40)
[2019-12-08] MEDS: hydroDIURIL 25 MG PO SCH (09:40)
[2019-12-08] MEDS: TOPIRAMATE PO SCH ×2 (09:57→21:38)
[2019-12-08] MEDS: ENTEREG 12 MG PO SCH ×2 (12:50→21:36)
[2019-12-08] MEDS: MORPHINE SULFATE 2 MG INJ IV PRN (20:33)
[2019-12-09] MEDS: Zosyn 3.375 GM Vial 3.375 GM in Sodium Chloride 100ML MINI-BAG PLUS 100 ML IV SCH ×3 (05:56→18:26)
[2019-12-09] MEDS: ENOXAPARIN SODIUM SQ SCH (10:46)
[2019-12-09] MEDS: PROTONIX 40 MG IV IV SCH (10:48)
[2019-12-09] MEDS: ceLEXa 20 MG PO SCH (10:50)
[2019-12-09] MEDS: TOPIRAMATE PO SCH (10:51)
[2019-12-09] MEDS: hydroDIURIL 25 MG PO SCH (10:51)
[2019-12-09] MEDS: PATIENT OWN MEDICATION PO SCH (10:52)
[2019-12-09] MEDS: ENTEREG 12 MG PO SCH (10:52)
[2019-12-09] MEDS: MORPHINE SULFATE 2 MG INJ IV PRN (18:44)
[2019-12-09 19:48] VITALS: BP 111/62; PULSE 82; O2SAT 98
== END 2019-12-09 19:30 | disposition home or self-care (01) | DRG 337 ==
LOC: MED SURG 07:07 → EDSTATUS 15:11 → MED SURG 15:53 → ICU 17:03 → MED SURG 12-03 13:00
PROVIDERS: ADMIT Surgery; ATTEND Surgery
PROC: 0DSN0ZZ Reposition Sigmoid Colon, Open Approach (ICD-10-PCS; principal; 2019-12-02)
PROC: 0DNE0ZZ Release Large Intestine, Open Approach (ICD-10-PCS; 2019-12-02)
PROC: 0DTJ0ZZ Resection of Appendix, Open Approach (ICD-10-PCS; 2019-12-02)
PROC: 0DJD8ZZ Inspection of Lower Intestinal Tract, Via Natural or Artificial Opening Endoscopic (ICD-10-PCS; 2019-12-02)
DX: Z43.3 Encounter for attention to colostomy (principal); I10 Essential (primary) hypertension; K38.8 Other specified diseases of appendix; Z86.711 Personal history of pulmonary embolism; Z79.899 Other long term (current) drug therapy
CPT/HCPCS: 36000; 36415; 36600; 36620; 64488; 76937; 76942; 80048; 80053; 81001; 82375; 82803; 83605; 83735; 84132; 85027; 86850; 86900; 86901; 87086; 88304; 88305; 94002; 94762; J0694; J1650; J2250; J2270; J2405; J2704; J3010; J3480; L0625; A9270-GY